=== PATIENT | female | born 1950 | race Asian ===

== ENCOUNTER 2024-02-11 23:09 | Observation (INO) | payer MEDICARE, OTHER ==
[2024-02-11 23:48] LABS: BASOPHILS % (AUTO) 0.5 %; EOSINOPHILS # (AUTO) 0.1 10^3/uL (0.0-0.7); EOSINOPHILS % (AUTO) 1.1 %; LYMPHOCYTES # (AUTO) 2.3 10^3/uL (1.5-3.5); LYMPHOCYTES % (AUTO) 40.4 %; MEAN CORPUSCULAR HEMOGLOBIN 32.5 pg (27.0-31.0); MEAN CORPUSCULAR HGB CONC 32.8 g/dL (32.0-36.0); MONOCYTES # (AUTO) 0.3 10^3/uL (0.0-1.0); MONOCYTES % (AUTO) 5.5 %; NEUTROPHILS % (AUTO) 52.1 %; PLT - PLATELET COUNT 282 10^3/uL (130-450); RED BLOOD COUNT 1.97 10^6/uL (4.20-5.40); RED CELL DISTRIBUTION WIDTH 13.6 % (12.0-15.0); WHITE BLOOD COUNT 5.7 x10^3/uL (4.8-10.8)
[2024-02-11 23:50] LABS: HCT - HEMATOCRIT 19.5 % (37.0-47.0); HGB - HEMOGLOBIN 6.4 g/dL (12.0-16.0)
[2024-02-11 23:52] LABS: INR 1.1 (0.8-1.2); PT - PROTHROMBIN TIME 11.8 secs (9.9-12.6)
[2024-02-12 00:06] LABS: ALBUMIN 3.8 g/dL (3.2-5.5); ALBUMIN/GLOBULIN RATIO 1.7 (1.0-2.2); BILIRUBIN,TOTAL 0.4 mg/dL (0.2-1.0); CALCIUM 9.1 mg/dL (8.5-10.3); CREATININE 0.8 mg/dL (0.6-1.3); POTASSIUM 3.7 mmol/L (3.5-4.5)
--- NOTE | 2024-02-12 00:45 | ED Physician Documentation ---
PD HPI GI BLEED - Stated complaint Stated Complaint: ABNORMAL LABS - Chief complaint Chief Complaint: General - History obtained from History obtained from: Patient - Additional information Additional information: Patient is a 73-year-old female with a history of internal hemorrhoids presenting for evaluation of low hemoglobin. Patient reports having bloody stools for the past 5 days. She has also been feeling weak, no energy and lightheaded and had outpatient labs drawn today. She has a second home on the [place] and just arrived here this evening with her . She received a phone call from her PCP stating that her hemoglobin was low and to come to the emergency department. She denies abdominal pain. No chest pain. No difficulty breathing. She has had prior colonoscopies and the last one was several years ago. Does not take any blood thinners or NSAIDs. States she only uses eyedrops for her eyes. Does occasionally have issues with constipation. Last bloody bowel movement was this morning. Review of Systems Constitutional: denies: Fever Cardiac: denies: Chest pain / pressure Respiratory: denies: Dyspnea GI: reports: Bloody / black stool. denies: Abdominal Pain, Vomiting Neurologic: reports: Generalized weakness PD PAST MEDICAL HISTORY - Past Medical History Past Medical History: No Cardiovascular: None Respiratory: None Neuro: None Endocrine/Autoimmune: None GI: None SALES AND MARKETING REPRESENTATIVE: None : None HEENT: None Psych: None Musculoskeletal: None Derm: None - Past Surgical History Past Surgical History: Yes General: Cholecystectomy, Appendectomy /SALES AND MARKETING REPRESENTATIVE: Breast implants, Other HEENT: Cataracts - Present Medications Home Medications: Ambulatory Orders Medication Instructions Recorded Confirmed No Known Home Medications 02/11/24 02/11/24 - Allergies Allergies/Adverse Reactions: Allergies Allergy/AdvReac Type Severity Reaction Status Date / Time oxycodone [From OxyContin] AdvReac Nausea Verified 02/11/24 23:18 - Social History Does the pt smoke?: No Smoking Status: Never smoker Does the pt drink ETOH?: Yes Does the pt have substance abuse?: No - Immunizations Immunizations are current?: Yes - POLST Patient has POLST: No PD ED PE NORMAL - General General: Alert and oriented X 3, No acute distress, Well developed/nourished - HEENT HEENT: Atraumatic - Neck Neck: Supple, no meningeal sign - Cardiac Cardiac: RRR - Respiratory Respiratory: No respiratory distress, Clear bilaterally - Abdomen Abdomen: Normal bowel sounds, Soft, Non tender, Non distended - Rectal Rectal: Other (Chaperoned by Johnathan, normal rectal tone, no significant stool, small amount of blood on glove) Results - Vitals Vitals: Vital Signs - 24 hr 02/11/24 02/12/24 02/12/24 23:11 00:18 01:46 Temperature 36.2 C L 36.5 C Heart Rate 75 75 Heart Rate [ 74 Monitoring electrodes] Respiratory 16 21 19 Rate Blood Pressure 144/66 H 119/64 Blood Pressure 121/66 [Right] O2 Saturation 98 97 100 02/12/24 02/12/24 02/12/24 02:00 02:07 02:30 Temperature 36.4 C L 36.4 C L 36.5 C Heart Rate 80 Heart Rate [ 81 66 Monitoring electrodes] Respiratory 15 21 15 Rate Blood Pressure 111/58 L Blood Pressure 111/58 L 107/60 [Right] O2 Saturation 98 100 98 02/12/24 02:59 Temperature 36.7 C Heart Rate Heart Rate [ 66 Monitoring electrodes] Respiratory 14 Rate Blood Pressure Blood Pressure 107/60 [Right] O2 Saturation 97 Oxygen O2 Source Room air - EKG (time done) 2358 EKG releavant findings:: EKG personally interpreted by author of this note. Relevant findings are: Rate 76, normal sinus rhythm, no STEMI, QTc 465 - Labs Labs: Microbiology 02/12/24 00:35 Occult Blood - Final Stool Laboratory Tests 02/11/24 02/11/24 02/11/24 23:42 23:42 23:42 WBC 5.7 RBC 1.97 L Hgb 6.4 L* Hct 19.5 L* MCV 99.0 MCH 32.5 H MCHC 32.8 RDW 13.6 Plt Count 282 MPV 9.0 Neut # (Auto) 3.0 Lymph # (Auto) 2.3 Rankin # (Auto) 0.3 Eos # (Auto) 0.1 Baso # (Auto) 0.0 Absolute Nucleated RBC 0.00 Nucleated RBC % 0.0 PT 11.8 INR 1.1 Sodium Potassium Chloride Carbon Dioxide Anion Gap BUN Creatinine Estimated GFR (MDRD) Glucose Calcium Total Bilirubin AST ALT Alkaline Phosphatase Total Protein Albumin Globulin Albumin/Globulin Ratio Lipase Blood Type A POSITIVE Antibody Screen Crossmatch IS Only 02/11/24 02/11/24 23:42 23:54 WBC RBC Hgb Hct MCV MCH MCHC RDW Plt Count MPV Neut # (Auto) Lymph # (Auto) Rankin # (Auto) Eos # (Auto) Baso # (Auto) Absolute Nucleated RBC Nucleated RBC % PT INR Sodium 137 Potassium 3.7 Chloride 106 Carbon Dioxide 25 Anion Gap 6.0 BUN 17 Creatinine 0.8 Estimated GFR (MDRD) 71 L Glucose 118 H Calcium 9.1 Total Bilirubin 0.4 AST 16 ALT 10 Alkaline Phosphatase 38 L Total Protein 6.0 L Albumin 3.8 Globulin 2.2 Albumin/Globulin Ratio 1.7 Lipase 16 Blood Type A POSITIVE Antibody Screen NEGATIVE Crossmatch IS Only See Detail PD Medical Decision Making - ED course Complexity details: reviewed results, re-evaluated patient, d/w patient, d/w diet consultant ED course: Patient is a 9-year-old female with no significant past medical history presenting for evaluation of a GI bleed. Patient has been having hematochezia for the past several days and had outpatient labs today showing anemia. No abdominal tenderness and vital signs are stable. CBC, chemistries reviewed. Hemoglobin is 6.4. Consented for blood transfusion. General surgery to consult and patient admitted to the hospitalist service. 1243 - Discussed with Dr. Howell. Would recommend keeping her n.p.o., blood transfusion, bowel prep and he will consult. Would consider colonoscopy if she has ongoing bleeding. Departure - Departure Disposition: [facility] DC/Xfer Clinical Impression: Lower GI bleed, Acute anemia Forms: PCP List
--- NOTE | 2024-02-12 03:13 | HISTORY & PHYSICAL EXAMINATION ---
Chief Complaint - Chief Complaint Chief Complaint: blood in stool History of Present Illness - Admitted From Admitted From:: home - History Obtained From Records Reviewed: yes History obtained from: patient, chart review, ER staff Exam Limitations: telemedicine - History of Present Illness HPI Comment/Other: Ms Barker is a 73 yo F with history of internal hemorrhoids. Patient reports history of intermittent bleeding for the past several years, her last colonoscopy 4-5 years ago. Patient reports she started bleeding ~ 5 days ago, only with BM. First blood, then normal stool. She started feeling more tired than usual ie after Lula class, low energy, she also felt like she was short of breath with going up stairs which is not normal for her. She denies dizziness or lightheadedness, denies palpitations or chest pain. Denies fevers, chills, cough. Denies abd pain or pain with bleeding. Denies N/V, reports good appetite. Last BM/blood was yesterday morning. She had outpatient labs drawn which showed Hgb 7 and she was advised to go to ER for transfusion. Hgb here 6.4. She has never required hospitalization for bleeding hemorrhoids, has never required blood transfusion. She is from [place], they have a second home on [facility] and are visiting for the holiday weekend. History - Past Medical History Cardiovascular: reports: None Respiratory: reports: None Neuro: reports: None Endocrine/Autoimmune: reports: None GI: reports: None MEDICAL OFFICE WORKER: reports: None : reports: None HEENT: reports: Glaucoma Psych: reports: None Musculoskeletal: reports: None Derm: reports: None MRSA Hx?: No - Past Surgical History General: reports: Cholecystectomy, Appendectomy /MEDICAL OFFICE WORKER: reports: Breast implants, Other HEENT: reports: Cataracts - POLST Patient has POLST: No Meds/Allgy - Home Medications Home Medications: Ambulatory Orders Medication Instructions Recorded Confirmed No Known Home Medications 02/11/24 02/11/24 - Allergies Allergies/Adverse Reactions: Allergies Allergy/AdvReac Type Severity Reaction Status Date / Time oxycodone [From OxyContin] AdvReac Nausea Verified 02/11/24 23:18 Review of Systems - Constitutional Constitutional: reports: Fatigue. denies: Fever, Chills, Poor appetite - Cardiovascular Cariovascular: reports: Exertional dyspnea, Decr. exercise tolerance. denies: Irregular heart rate, Palpitations, Chest pain, Lightheadedness, Syncope - Gastrointestinal Gastrointestinal: reports: Rectal bleeding. denies: Abdominal pain, Abdominal distention, Constipation, Diarrhea, Change in bowel habits, Nausea, Vomiting - Musculoskeletal Musculoskeletal: denies: Muscle pain, Muscle aches - Integumentary Integumentary: denies: Rash, Pruritis - Neurological Neurological: denies: Focal weakness, Headache, Dizziness - All Other Systems All Other Systems: reports: Reviewed and negative Exam - Vital Signs Reviewed Vital Signs: Yes Vital Signs: Vital Signs x48h Temp Pulse Pulse Resp BP BP Pulse Ox 02/12/24 02:59 36.7 C 66 14 107/60 97 02/12/24 02:30 36.5 C 66 15 107/60 98 02/12/24 02:07 36.4 C L 81 21 111/58 L 100 02/12/24 02:00 36.4 C L 80 15 111/58 L 98 02/12/24 01:46 36.5 C 74 19 121/66 100 02/12/24 00:18 75 21 119/64 97 02/11/24 23:11 36.2 C L 75 16 144/66 H 98 - Physical Exam General Appearance: positive: No acute distress, Alert Respiratory: positive: No respiratory distress Skin: positive: Color nml, No rash Neurologic/Psychiatric: positive: Oriented x3, Mood/affect nml Conclusion/Plan - Lab Results Lab results reviewed: Yes Fish Bones: 02/11/24 23:42 02/11/24 23:42 - Other Other Results/Comments: Acute blood loss anemia Rectal bleeding History of internal hemorrhoids -Hb 6.4, fatigue, exertional dyspnea and decreased exercise tolerance secondary to anemia -Continue blood transfusion, 1 U PRBC ordered in ER -Follow up post transfusion H&H -Gen surg consulted in ER, follow up recommendations -Patient follows with GI in [place], no prior surgical history related to hemorrhoids Hx glaucoma -Continue home eye drops DVT ppx: SCDs Full code Admit for observation. Telemedicine Consult Details - Provider Location & Consult Time Telemedicine consultation conducted via videoconferencing?: Yes List names and roles of persons who participated in consult:: patient, provider, ER staff Telemedicine provider location:: [place]
[2024-02-12] MEDS ORDERED: ONDANSETRON 4 MG/2 ML VIAL IVP PRN (03:14)
[2024-02-12] MEDS ORDERED: SODIUM CHLORIDE FLUSH 0.9% 10 ML SYRINGE IVP PRN (03:14)
[2024-02-12] MEDS: LATANOPROST 0.005% OPHTH DROPS EACHEYE SCH (04:11)
[2024-02-12 07:28] LABS: BASOPHILS % (AUTO) 0.5 %; EOSINOPHILS # (AUTO) 0.1 10^3/uL (0.0-0.7); EOSINOPHILS % (AUTO) 1.1 %; HCT - HEMATOCRIT 25.5 % (37.0-47.0); HGB - HEMOGLOBIN 8.3 g/dL (12.0-16.0); LYMPHOCYTES # (AUTO) 1.8 10^3/uL (1.5-3.5); LYMPHOCYTES % (AUTO) 40.6 %; MEAN CORPUSCULAR HEMOGLOBIN 30.9 pg (27.0-31.0); MEAN CORPUSCULAR HGB CONC 32.5 g/dL (32.0-36.0); MEAN CORPUSCULAR VOLUME 94.8 fL (81.0-99.0); MEAN PLATELET VOLUME 9.1 fL (7.9-10.8); MONOCYTES # (AUTO) 0.3 10^3/uL (0.0-1.0); MONOCYTES % (AUTO) 6.7 %; NEUTROPHILS # (AUTO) 2.2 10^3/uL (1.5-6.6); NEUTROPHILS % (AUTO) 50.2 %; PLT - PLATELET COUNT 247 10^3/uL (130-450); RED BLOOD COUNT 2.69 10^6/uL (4.20-5.40); WHITE BLOOD COUNT 4.4 x10^3/uL (4.8-10.8)
[2024-02-12 07:45] LABS: CALCIUM 9.1 mg/dL (8.5-10.3); CREATININE 0.7 mg/dL (0.6-1.3); POTASSIUM 4.2 mmol/L (3.5-4.5)
[2024-02-12] MEDS: SODIUM CHLORIDE FLUSH 0.9% 10 ML SYRINGE IVP SCH (08:02)
--- NOTE | 2024-02-12 08:50 | PROVIDER PROGRESS NOTE ---
Subjective - Prog Note Date Prog Note Date: 02/12/24 Prog Note Time: 08:44 - Subjective Pt reports feeling: Improved Subjective: Has been having this bleeding on and off with her daily bowel movements for quite some time. She is not quite sure how long. She only bleeds when she has bowel movements and she has bowel movements once a day in the morning. She was having some increased dyspnea on exertion and fatigue went to her primary care provider who ordered a CBC. PCP called yesterday evening to let her know that her hemoglobin was 7 and she went to the emergency department. It was in the last few days that she also noticed that her gums and her conjunctiva were quite pale. She has not had any melena she is not having any abdominal pain. Last colonoscopy was 4 to 6 years ago and was negative she is on a 10-year repeat cycle. She has a negative past medical history significant only for prediabetes and she takes drops for glaucoma. Her family history is negative for any cancer she states she had hemorrhoidal banding when she was in her 20s. She has had 2 children vaginally. She does not have any pain or discomfort in her perirectal area. Her family history is negative for cancer her mom at the age of 64 of unknown causes. Her dad of a CVA at the age of 58. She has 3 brothers who are healthy and well all of them older than her. Current Medications - Current Medications Current Medications: Medications Ondansetron HCl (Ondansetron 4 Mg/2 Ml Vial) 4 mg IVP Q6HR PRN PRN Reason: Nausea / Vomiting Latanoprost (Latanoprost 0.005% Ophth Drops) 1 drops EACHEYE QPM [facility] Last Admin: 02/12/24 04:11 Dose: Not Given Objective - Vital Signs/Intake & Output Reviewed Vital Signs: Yes Vital Signs: Vital Signs x48h Temp Pulse Pulse Resp BP BP Pulse Ox 02/12/24 08:03 36.7 C 74 14 114/68 100 02/12/24 05:05 36.6 C 69 16 112/63 97 02/12/24 04:15 37 C 70 16 124/60 98 02/12/24 03:40 36.5 C 65 15 125/67 99 02/12/24 03:24 36.4 C L 66 16 109/63 99 02/12/24 02:59 36.7 C 66 14 107/60 97 02/12/24 02:30 36.5 C 66 15 107/60 98 02/12/24 02:07 36.4 C L 81 21 111/58 L 100 02/12/24 02:00 36.4 C L 80 15 111/58 L 98 02/12/24 01:46 36.5 C 74 19 121/66 100 Intake & Output: Intake & Output 02/09/24 02/10/24 02/11/24 02/12/24 23:59 23:59 23:59 23:59 Intake Total 300 Balance 300 - Objective General Appearance: positive: No acute distress, Alert Eyes Bilateral: positive: Normal inspection, Conjunctivae nml ENT: positive: ENT inspection nml Neck: positive: Nml inspection Respiratory: positive: No respiratory distress, Breath sounds nml Cardiovascular: positive: Regular rate & rhythm Abdomen: positive: Non-tender, Nml bowel sounds, No distention Back: positive: Nml inspection Skin: positive: Color nml Extremities: positive: Non-tender Neurologic/Psychiatric: positive: Oriented x3 - Lab Results Fish Bones: 02/12/24 07:13 02/12/24 07:13 Other Labs: Lab Results x24hrs 02/12/24 02/12/24 02/12/24 Range/Units 07:13 07:13 07:13 WBC 4.4 L (4.8-10.8) x10^3/uL RBC 2.69 L (4.20-5.40) 10^6/uL Hgb 8.3 L (12.0-16.0) g/dL Hct 25.5 L (37.0-47.0) % MCV 94.8 (81.0-99.0) fL MCH 30.9 (27.0-31.0) pg MCHC 32.5 (32.0-36.0) g/dL RDW 16.0 H (12.0-15.0) % Plt Count 247 (130-450) 10^3/uL MPV 9.1 (7.9-10.8) fL Neut # (Auto) 2.2 (1.5-6.6) 10^3/uL Lymph # (Auto) 1.8 (1.5-3.5) 10^3/uL Beadle # (Auto) 0.3 (0.0-1.0) 10^3/uL Eos # (Auto) 0.1 (0.0-0.7) 10^3/uL Baso # (Auto) 0.0 (0.0-0.1) 10^3/uL Absolute Nucleated RBC 0.00 x10^3/uL Nucleated RBC % 0.0 /100WBC PT (9.9-12.6) secs INR (0.8-1.2) Sodium 140 (135-145) mmol/L Potassium 4.2 (3.5-4.5) mmol/L Chloride 110 (101-111) mmol/L Carbon Dioxide 27 (21-32) mmol/L Anion Gap 3.0 L (6-13) BUN 12 (6-20) mg/dL Creatinine 0.7 (0.6-1.3) mg/dL Estimated GFR (MDRD) 82 L (>89) Glucose 107 H (74-104) mg/dL Calcium 9.1 (8.5-10.3) mg/dL Total Bilirubin (0.2-1.0) mg/dL AST (10-42) IU/L ALT (10-60) IU/L Alkaline Phosphatase (42-121) IU/L Total Protein (6.4-8.9) g/dL Albumin (3.2-5.5) g/dL Globulin (2.1-4.2) g/dL Albumin/Globulin Ratio (1.0-2.2) Lipase (11-82) U/L Vitamin B12 379 (180-914) pg/mL Folate 12.0 (5.90 - >24.8) ng/mL Blood Type Antibody Screen Crossmatch IS Only 02/11/24 02/11/24 02/11/24 Range/Units 23:54 23:42 23:42 WBC (4.8-10.8) x10^3/uL RBC (4.20-5.40) 10^6/uL Hgb (12.0-16.0) g/dL Hct (37.0-47.0) % MCV (81.0-99.0) fL MCH (27.0-31.0) pg MCHC (32.0-36.0) g/dL RDW (12.0-15.0) % Plt Count (130-450) 10^3/uL MPV (7.9-10.8) fL Neut # (Auto) (1.5-6.6) 10^3/uL Lymph # (Auto) (1.5-3.5) 10^3/uL Beadle # (Auto) (0.0-1.0) 10^3/uL Eos # (Auto) (0.0-0.7) 10^3/uL Baso # (Auto) (0.0-0.1) 10^3/uL Absolute Nucleated RBC x10^3/uL Nucleated RBC % /100WBC PT 11.8 (9.9-12.6) secs INR 1.1 (0.8-1.2) Sodium 137 (135-145) mmol/L Potassium 3.7 (3.5-4.5) mmol/L Chloride 106 (101-111) mmol/L Carbon Dioxide 25 (21-32) mmol/L Anion Gap 6.0 (6-13) BUN 17 (6-20) mg/dL Creatinine 0.8 (0.6-1.3) mg/dL Estimated GFR (MDRD) 71 L (>89) Glucose 118 H (74-104) mg/dL Calcium 9.1 (8.5-10.3) mg/dL Total Bilirubin 0.4 (0.2-1.0) mg/dL AST 16 (10-42) IU/L ALT 10 (10-60) IU/L Alkaline Phosphatase 38 L (42-121) IU/L Total Protein 6.0 L (6.4-8.9) g/dL Albumin 3.8 (3.2-5.5) g/dL Globulin 2.2 (2.1-4.2) g/dL Albumin/Globulin Ratio 1.7 (1.0-2.2) Lipase 16 (11-82) U/L Vitamin B12 (180-914) pg/mL Folate (5.90 - >24.8) ng/mL Blood Type A POSITIVE Antibody Screen NEGATIVE Crossmatch IS Only See Detail 02/11/24 02/11/24 Range/Units 23:42 23:42 WBC 5.7 (4.8-10.8) x10^3/uL RBC 1.97 L (4.20-5.40) 10^6/uL Hgb 6.4 L* (12.0-16.0) g/dL Hct 19.5 L* (37.0-47.0) % MCV 99.0 (81.0-99.0) fL MCH 32.5 H (27.0-31.0) pg MCHC 32.8 (32.0-36.0) g/dL RDW 13.6 (12.0-15.0) % Plt Count 282 (130-450) 10^3/uL MPV 9.0 (7.9-10.8) fL Neut # (Auto) 3.0 (1.5-6.6) 10^3/uL Lymph # (Auto) 2.3 (1.5-3.5) 10^3/uL Beadle # (Auto) 0.3 (0.0-1.0) 10^3/uL Eos # (Auto) 0.1 (0.0-0.7) 10^3/uL Baso # (Auto) 0.0 (0.0-0.1) 10^3/uL Absolute Nucleated RBC 0.00 x10^3/uL Nucleated RBC % 0.0 /100WBC PT (9.9-12.6) secs INR (0.8-1.2) Sodium (135-145) mmol/L Potassium (3.5-4.5) mmol/L Chloride (101-111) mmol/L Carbon Dioxide (21-32) mmol/L Anion Gap (6-13) BUN (6-20) mg/dL Creatinine (0.6-1.3) mg/dL Estimated GFR (MDRD) (>89) Glucose (74-104) mg/dL Calcium (8.5-10.3) mg/dL Total Bilirubin (0.2-1.0) mg/dL AST (10-42) IU/L ALT (10-60) IU/L Alkaline Phosphatase (42-121) IU/L Total Protein (6.4-8.9) g/dL Albumin (3.2-5.5) g/dL Globulin (2.1-4.2) g/dL Albumin/Globulin Ratio (1.0-2.2) Lipase (11-82) U/L Vitamin B12 (180-914) pg/mL Folate (5.90 - >24.8) ng/mL Blood Type A POSITIVE Antibody Screen Crossmatch IS Only ABX Reporting Has patient been on IV antibiotics over the past 48 hours?: No Assessment/Plan - Problem List (1) Acute anemia Impression: Has not had any further episodes of rectal bleeding since admission. She normally has a bowel movement in the morning. Her hemoglobin has responded more than appropriately to transfusion this morning recheck his 8.3. Admission hemoglobin was 6.4. She has received 1 unit of packed red blood cells. Iron studies were sent this morning. I will follow-up on these probably start oral iron therapy. Also will consider 1 dose of Ferrlecit prior to discharge. (2) Lower GI bleed Impression: Discussed with Dr. Howell of general surgery. He has requested that we start the patient on clear liquid diet. We will observe for further bleeding. If she has further bleeding he will consider endoscopy later today. (3) Glaucoma Impression: Home medications have been ordered.
--- NOTE | 2024-02-12 10:10 | PHARMACY PROGRESS NOTE ---
- Best Possible Medication History Admit Date and Time: 02/12/244 Processed by: Pharmacy Medications reviewed in ED?: Yes Medication History completed: Yes Patient Interview: Completed Secondary Source(s): Insurance records As the person ultimately responsible for medication therapy, providers are able to order a medication from an existing home medication list in [facility] via the "Reconcile Routine" prior to Confirmation of that medication by technical support engineer. Such practice is discouraged except when the physician, in their clinical judgment, deems that a medical need exists for a medication without regard to previous use.
--- NOTE | 2024-02-12 10:38 | CONSULTATION NOTE ---
Referring Provider Consult Date: 02/12/24 Chief Complaint - Chief Complaint Chief Complaint: blood into toilet History of Present Illness - History Obtained From Records Reviewed: yes History obtained from: pt Exam Limitations: none - History of Present Illness HPI Comment/Other: history hemorrhoid troubles and blood into toilet. colonoscopy 4 years ago no polyps per her report. she denies hemorrhoid prolapse. no bm since yesterday am. admitted with anemia and feeling weak. History - Past Medical History Cardiovascular: reports: None Respiratory: reports: None Neuro: reports: None Endocrine/Autoimmune: reports: None GI: reports: None CONSULTING SALES EXECUTIVE: reports: None : reports: None HEENT: reports: Glaucoma Psych: reports: None Musculoskeletal: reports: None Derm: reports: None MRSA Hx?: No - Past Surgical History General: reports: Cholecystectomy, Appendectomy /CONSULTING SALES EXECUTIVE: reports: Breast implants, Other HEENT: reports: Cataracts - POLST Patient has POLST: No Meds/Allgy - Home Medications Home Medications: Ambulatory Orders Medication Instructions Recorded Confirmed Latanoprost 0.005% Ophth Drops 1 drops EACHEYE HS 02/12/24 02/12/24 [Xalatan Ophth Drops] - Allergies Allergies/Adverse Reactions: Allergies Allergy/AdvReac Type Severity Reaction Status Date / Time oxycodone [From OxyContin] AdvReac Nausea Verified 02/11/24 23:18 Review of Systems - Other Findings Other Findings: 10 pt ros as above otherwise unremarkable Exam - Vital Signs Vital Signs: Vital Signs x48h Temp Pulse Resp BP Pulse Ox 02/12/24 08:03 36.7 C 74 14 114/68 100 02/12/24 05:05 36.6 C 69 16 112/63 97 02/12/24 04:15 37 C 70 16 124/60 98 02/12/24 03:40 36.5 C 65 15 125/67 99 02/12/24 03:24 36.4 C L 66 16 109/63 99 02/12/24 02:59 36.7 C 66 14 107/60 97 - Physical Exam General Appearance: positive: No acute distress, Alert Eyes Bilateral: positive: PERRL, EOMI Neck: positive: No JVD, Trachea midline Respiratory: positive: No respiratory distress Abdomen: positive: No distention Neurologic/Psychiatric: positive: Oriented x3 Conclusion/Plan - Problem List (1) Lower GI bleed Conclusion/Plan: clinically she has hemorrhoid bleeding. no bm or blood since yesterday am. she is up to date on colon cancer screening. if she continues to have bleeding plan bedside anoscopy. if no significant bleeding plan follow up in the surgery office for anoscopy. she denies hemorrhoid prolapse. if she has circumferential numerous small veins surgery or procedures will unlikely be beneficial. if she has a single site of bleeding internal hemorrhoid banding will likely be beneficial. this is most often an office procedure. ok to have clears. - Lab Results Lab results reviewed: Yes López Bones: 02/12/24 07:13 02/12/24 07:13
--- NOTE | 2024-02-12 11:46 | Discharge Plan ---
Discharge Plan Problem Reviewed?: Yes Disposition: Home, Self Care Prescriptions: Docusate Sodium 250Mg Capsule [Colace 250Mg Capsule] 250 mg PO BID #60 Iron Fum,Ps/Folic/Bcomp,C No.9 [Iron Folate Plus Capsule] 1 each PO DAILY #30 cap Diet: Regular Activity Restrictions: No Restrictions Shower Restrictions: No Driving Restrictions: No Weight Bearing: Full Weight Instruction Topics: Hemorrhoids Self Care, Anemia Health Concerns: You became anemic because of bleeding from your hemorrhoids. You need further follow-up with a food scientist to take a closer look at things and make sure this is the cause of your problem. You should come back here if you have more bleeding or if you start to feel weak and dizzy like you did previously. That is an indication that you need further treatment. Blood transfusion brought your levels from 6.4 to 8.3. Normal is about 12. you are still anemic, but stable enough to leave the hospital. Make sure to call your primary care physician and get on her schedule GRUPO for referral to food scientist for further evaluation and treatment someone does need to visualize these hemorrhoids and make sure that there is nothing to be done and that nothing else is causing this problem additionally, you need a follow-up blood count next week. You need to take iron supplements to help your body rebuild red blood cells. These are available over the counter- labeled as 325mg Ferrous Sulfate (65mg elemental iron). These can cause constipation- so lots of water, lots of dietary fiber, and that is why I recommend that you take these not every day, but three times a week. To prevent further bleeding, I want you to keep your stools very soft. For this reason, I would like you to take Colace twice a day. This is available at [employer], or any drugstore [email or web address]. I have prescribed 250 mg twice a day. Sometimes it comes in 100 mg capsules, in that case 200 mg twice a day is plenty. Remember that you are still anemic. Do not push yourself physically, get lots of rest. Plan of Treatment: keep stool soft. replace iron in your body. Care Goals: see primary care and gastroenterology. in followup Assessment: Anemia from acute blood loss secondary to hemorrhoids bleeding. No Smoking: If you smoke, Please STOP! Call for help. Follow-up with: LOLA FOLEY MD [Physician No Access] -
[2024-02-12 11:58] LABS: % IRON SATURATION 10 % (20-50); IRON 36 ug/dL (50-212); TOTAL IRON BINDING CAPACITY 343 ug/dL (250-450); TRANSFERRIN 245 mg/dL (203-362)
--- NOTE | 2024-02-12 12:07 | DISCHARGE SUMMARY ---
"Discharge Summary Admit Date: 02/12/24 Discharge Date: 02/12/24 Discharging Provider: Liya Pitts PA-C Primary Care Provider: Halina Miranda Code Status: Attempt Resuscitation Condition at Discharge: Good Discharge Disposition: 01 Home, Self Care - DIAGNOSES Admission Diagnoses: acute blood loss anemia hemorrhoids Discharge Diagnoses with Status of Each Condition: 1) Acute anemia Impression: Has not had any further episodes of rectal bleeding since admission. She normally has a bowel movement in the morning. Her hemoglobin has responded more than appropriately to transfusion. this morning recheck is 8.3. Admission hemoglobin was 6.4. She has received 1 unit of packed red blood cells. Iron studies sent this morning show Iron level 36, TIBC 343, % saturation 10 and transferrin 245. B12 and folate normal at 379 and 12 respectively. (2) Lower GI bleed Impression: Discussed with Dr. Howell of general surgery. He has requested that we start the patient on clear liquid diet. She has not had any further bleeding. She wishes to go home. (3) Glaucoma Impression: Home medications have been ordered. - HPI History of Present Illness: From [employer] H&P: Ms Barker is a 73 yo F with history of internal hemorrhoids. Patient reports history of intermittent bleeding for the past several years, her last colonoscopy 4-5 years ago. Patient reports she started bleeding ~ 5 days ago, only with BM. First blood, then normal stool. She started feeling more tired than usual ie after Lula class, low energy, she also felt like she was short of breath with going up stairs which is not normal for her. She denies dizziness or lightheadedness, denies palpitations or chest pain. Denies fevers, chills, cough. Denies abd pain or pain with bleeding. Denies N/V, reports good appetite. Last BM/blood was yesterday morning. She had outpatient labs drawn which showed Hgb 7 and she was advised to go to ER for transfusion. Hgb here 6.4. She has never required hospitalization for bleeding hemorrhoids, has never required blood transfusion. She is from [place], they have a second home on [address] and are visiting for the holiday weekend. - CONSULTS | PROCEDURES Consultations: Dr Howell, general surgery Procedures: none - HOSPITAL COURSE Hospital Course: Admitted with symptomatic acute blood loss anemia with a history of hemorrhoids and hematochezia for about 5 days. Patient is not had any bleeding aside from when she stools. First she passes blood than normal stool. She received 1 unit of packed red blood cells and was transferred to the floor. She remained hemodynamically stable without any hypotension or tachycardia. Repeat hemoglobin in the a.m. was 8.3. She did not have any additional episodes of bright red blood per rectum. Iron studies were sent showing low iron levels B vitamin levels were normal. Patient was counseled regarding iron supplementation also counseled regarding association of constipation with iron supplementation association of constipation with hemorrhoids. She was discharged home with instructions to engage in [id number] iron supplementation 3 times a week stool softeners daily to. She and her state understanding. They were given return precautions for symptomatic anemia or additional bright red bleeding per rectum. She understands. She has already called her primary care physician and is working on getting follow-up next week. She will then proceed to gastroenterology for further evaluation and treatment. Plan of care was discussed with patient's daughter who is an RN at the patient's request. - ALLERGIES Allergies/Adverse Reactions: Allergies Allergy/AdvReac Type Severity Reaction Status Date / Time oxycodone [From OxyContin] AdvReac Nausea Verified 02/11/24 23:18 - MEDICATIONS Home Medications: Ambulatory Orders Medication Instructions Recorded Confirmed Docusate Sodium 250Mg Capsule 250 mg PO BID #60 02/12/24 [Colace 250Mg Capsule] Iron Fum,Ps/Folic/Bcomp,C No.9 1 each PO DAILY #30 cap 02/12/24 [Iron Folate Plus Capsule] Latanoprost 0.005% Ophth Drops 1 drops EACHEYE HS 02/12/24 02/12/24 [Xalatan Ophth Drops] Latanoprost 0.005% Ophth Drops 1 drops EACHEYE QPM each 02/12/24 [Xalatan Ophth Drops] - PHYSICAL EXAM AT DISCHARGE General Appearance: positive: No acute distress Eyes Bilateral: positive: Normal inspection ENT: positive: ENT inspection nml Neck: positive: Nml inspection Respiratory: positive: Chest non-tender, Breath sounds nml Cardiovascular: positive: Regular rate & rhythm Abdomen: positive: Non-tender, No distention Rectal: negative: Bloody stool Skin: positive: Color nml Extremities: positive: Non-tender Neurologic/Psychiatric: positive: Oriented x3 - LABS Result Diagrams: 02/12/24 07:13 02/12/24 07:13 - FOLLOW UP Follow Up: PCP next week. return to for symtomatic anemia. - TIME SPENT Time Spent in Discharge (Minutes): 30"
[2024-02-12 12:22] VITALS: BP 108/63; O2SAT 98
== END 2024-02-12 13:19 | disposition home or self-care (01) ==
LOC: ED 23:09 → MS2 02-12 03:14
PROVIDERS: ADMIT Student in an Organized Health Care Education/Training Program; ATTEND Physician Assistant Medical
DX: D62 Acute posthemorrhagic anemia (principal); K92.1 Melena; H40.9 Unspecified glaucoma; K64.8 Other hemorrhoids; Z79.899 Other long term (current) drug therapy
CPT/HCPCS: 36415; 36430; 80048; 80053; 82272; 82607; 82746; 83540; 83690; 84466; 85025; 85610; 86850; 86900; 86901; 86920; 93005; 99284; 99285; A9270; G0378; P9016